=== PATIENT | male | born 1930 | race Caucasian/White ===

== ENCOUNTER 2018-01-07 16:28 | Emergency (ER) | payer MEDICARE, BC, OTHER ==
[~2018-01-07] VITALS: Ht 172.7 cm; Wt 73.5 kg
[2018-01-07] MEDS ORDERED: normal saline 1000ml 1,000 ML IV SCH (16:50)
[2018-01-07] MEDS ORDERED: verapamil 2.5 mg/ml inj IV ONE (16:50)
[2018-01-07 17:00] LABS: BASOPHILS % (AUTO) 0.4 % (0-1); EOSINOPHILS # (AUTO) 0.2 X10'3 (0-0.9); EOSINOPHILS % (AUTO) 2.1 % (0-6); HEMATOCRIT 37.9 % (42.0-52.0); LYMPHOCYTES # (AUTO) 2.5 X10'3 (1.1-4.8); LYMPHOCYTES % (AUTO) 26.5 % (21-51); MEAN CORPUSCULAR HEMOGLOBIN 31.8 PG (27.0-31.0); MEAN CORPUSCULAR HGB CONC 34.3 % (33.0-36.5); MEAN CORPUSCULAR VOLUME 92.7 FL (78-98); MEAN PLATELET VOLUME 7.8 FL (7.4-10.4); MONOCYTES # (AUTO) 0.8 X10'3 (0-0.9); MONOCYTES % (AUTO) 7.9 % (2-12); NEUTROPHILS # (AUTO) 6.1 X10'3 (1.8-7.7); NEUTROPHILS % (AUTO) 63.1 % (42-75); PLATELET COUNT 237 X10'3 (140-440); RED BLOOD COUNT 4.09 X10'6 (4.70-6.10); RED CELL DISTRIBUTION WIDTH 13.7 % (11.5-14.5); WHITE BLOOD COUNT 9.6 X10'3 (4.5-11.0)
[2018-01-07 17:09] LABS: INR 1.1 INR; PARTIAL THROMBOPLASTIN TIME 27 SECONDS (22-32); PROTHROMBIN TIME 11.2 SECONDS (9.0-12.0)
[2018-01-07 17:16] LABS: ALANINE AMINOTRANSFERASE 32 U/L (12-78); ALBUMIN 4.1 G/DL (3.4-5.0); ALBUMIN/GLOBULIN RATIO 1.2 (1.1-1.5); ALKALINE PHOSPHATASE 98 IU/L (46-116); ANION GAP 11 (8-16); ASPARTATE AMINO TRANSFERASE 20 U/L (10-37); BILIRUBIN,TOTAL 0.9 MG/DL (0.1-1.0); BLOOD UREA NITROGEN 36 MG/DL (7-18); BUN/CREATININE RATIO 24.5 (5.4-32.0); CALCIUM 9.9 MG/DL (8.5-10.1); CHLORIDE 109 MMOL/L (99-107); CREATININE 1.47 MG/DL (0.60-1.10); GLUCOSE 156 MG/DL (70-104); POTASSIUM 4.3 MMOL/L (3.5-5.1); SODIUM 147 MMOL/L (135-145); TOTAL CARBON DIOXIDE 27.5 MMOL/L (24-32); TOTAL PROTEIN 7.5 G/DL (6.4-8.2); eGFR 45 ML/MIN
[2018-01-07] MEDS ORDERED: flecainide 50mg tablet PO ONE (17:40)
[2018-01-07 17:47] VITALS: BP 101/55
== END 2018-01-07 17:40 | disposition home or self-care (01) ==
LOC: ER 16:28
DX: I48.0 Paroxysmal atrial fibrillation (principal); I10 Essential (primary) hypertension; E78.00 Pure hypercholesterolemia, unspecified; E11.9 Type 2 diabetes mellitus without complications
CPT/HCPCS: 36415; 71045; 80053; 84484; 85025; 85610; 85730; 93005; 96361; 96374; 99285; J7030

== ENCOUNTER 2018-02-24 14:00 | Inpatient (IN) | payer MEDICARE, BC, OTHER ==
[~2018-02-24] VITALS: Ht 170.2 cm; Wt 75.2 kg
[2018-02-24 14:40] LABS: BASOPHILS % (AUTO) 0.3 % (0-1); EOSINOPHILS # (AUTO) 0.3 X10'3 (0-0.9); EOSINOPHILS % (AUTO) 3.2 % (0-6); HEMATOCRIT 40.2 % (42.0-52.0); HEMOGLOBIN 13.7 g/dl (14.0-17.9); LYMPHOCYTES % (AUTO) 23.9 % (21-51); MEAN CORPUSCULAR HEMOGLOBIN 32.2 PG (27.0-31.0); MEAN CORPUSCULAR HGB CONC 34.1 % (33.0-36.5); MEAN CORPUSCULAR VOLUME 94.6 FL (78-98); MEAN PLATELET VOLUME 8.2 FL (7.4-10.4); MONOCYTES # (AUTO) 0.7 X10'3 (0-0.9); MONOCYTES % (AUTO) 8.1 % (2-12); NEUTROPHILS # (AUTO) 5.5 X10'3 (1.8-7.7); NEUTROPHILS % (AUTO) 64.5 % (42-75); PLATELET COUNT 208 X10'3 (140-440); RED BLOOD COUNT 4.25 X10'6 (4.70-6.10); RED CELL DISTRIBUTION WIDTH 13.3 % (11.5-14.5); WHITE BLOOD COUNT 8.5 X10'3 (4.5-11.0)
[2018-02-24 14:52] LABS: INR 1.2 INR; PARTIAL THROMBOPLASTIN TIME 29 SECONDS (22-32); PROTHROMBIN TIME 11.9 SECONDS (9.0-12.0)
[2018-02-24 14:55] LABS: ALANINE AMINOTRANSFERASE 32 U/L (12-78); ALBUMIN 4.1 G/DL (3.4-5.0); ALBUMIN/GLOBULIN RATIO 1.2 (1.1-1.5); ALKALINE PHOSPHATASE 93 IU/L (46-116); ANION GAP 10 (8-16); ASPARTATE AMINO TRANSFERASE 18 U/L (10-37); BILIRUBIN,TOTAL 1.2 MG/DL (0.1-1.0); BLOOD UREA NITROGEN 35 MG/DL (7-18); BUN/CREATININE RATIO 21.1 (5.4-32.0); CALCIUM 9.9 MG/DL (8.5-10.1); CHLORIDE 105 MMOL/L (99-107); CREATININE 1.66 MG/DL (0.60-1.10); GLUCOSE 119 MG/DL (70-104); POTASSIUM 4.2 MMOL/L (3.5-5.1); SODIUM 140 MMOL/L (135-145); TOTAL CARBON DIOXIDE 24.9 MMOL/L (24-32); TOTAL PROTEIN 7.5 G/DL (6.4-8.2); eGFR 39 ML/MIN
[2018-02-24 15:00] LABS: TROPONIN I < 0.04 NG/ML (0.0-0.05)
[2018-02-24] MEDS ORDERED: HYDROcodone/acetaminophen 5mg/325mg tablet PO PRN (16:00)
[2018-02-24] MEDS ORDERED: morphine 4 MG/ML inj SYRINge IV PRN ×2 (16:00)
[2018-02-24] MEDS ORDERED: ondansetron/PF 4mg/2ml inj IV PRN (16:00)
[2018-02-24] MEDS ORDERED: acetaminophen 325mg tablet PO PRN (16:00)
[2018-02-24] MEDS ORDERED: mag hydrox/Alum hydrox/simeth 30ml oral suspension PO PRN (16:00)
[2018-02-24] MEDS ORDERED: HYDROcodone/acetaminophen 10/325mg tab PO PRN (16:00)
[2018-02-24] MEDS ORDERED: magnesium hydroxide 30ml (MOM) UD suspension PO PRN (16:00)
[2018-02-24] MEDS: normal saline 1000ml 1,000 ML IV SCH (16:22)
[2018-02-24 16:39] LABS: CLARITY,URINE CLOUDY (Clear); COLOR,URINE YELLOW (Yellow); GLUCOSE, URINE NEGATIVE (Neg); KETONES,URINE TRACE mg/dl (Neg); LEUKOCYTE ESTERASE ,URINE NEGATIVE (Neg); NITRITES, URINE NEGATIVE (Neg); OCCULT BLOOD,URINE LARGE (Neg); PH,URINE 5.5 (4.8-8.0); PROTEIN,URINE TRACE mg/dl (Neg); UROBILINOGEN,URINE 0.2 E.U/dL (0.2-1.0)
[2018-02-24 16:59] LABS: UA COLLECTION TYPE CLN CATCH MIDSTREAM
[2018-02-24 17:01] LABS: BACTERIA,URINE NONE SEEN /HPF (Neg); MUCUS STRANDS MANY /LPF (Neg); RBC,URINE 50-100 /HPF (0-2); SQUAMOUS EPITHELIAL CELL,UR FEW /LPF (FEW); TRANSITIONAL EPI CELLS,URINE FEW /HPF; WBC,URINE 0-4 /HPF (0-4)
[2018-02-24 17:02] LABS: HYALINE CASTS >30 /LPF (NEGATIVE)
[2018-02-24] MEDS ORDERED: LOSA25TA96 PO (17:10)
[2018-02-24] MEDS ORDERED: METO-467 PO (17:11)
[2018-02-24] MEDS ORDERED: SIMV20TA5 PO (17:12)
[2018-02-24] MEDS ORDERED: METF500T PO (17:13)
[2018-02-24 19:00] VITALS: BP 169/85
[2018-02-24 23:00] VITALS: BP 154/66
[2018-02-25] MEDS: normal saline 1000ml 1,000 ML IV SCH ×2 (01:56→11:56)
[2018-02-25 03:00] VITALS: BP 157/66
[2018-02-25 05:37] LABS: BASOPHILS % (AUTO) 0.5 % (0-1); EOSINOPHILS # (AUTO) 0.4 X10'3 (0-0.9); EOSINOPHILS % (AUTO) 5.8 % (0-6); HEMATOCRIT 37.4 % (42.0-52.0); HEMOGLOBIN 12.7 g/dl (14.0-17.9); LYMPHOCYTES # (AUTO) 2.2 X10'3 (1.1-4.8); LYMPHOCYTES % (AUTO) 34.6 % (21-51); MEAN CORPUSCULAR HEMOGLOBIN 32.3 PG (27.0-31.0); MEAN CORPUSCULAR HGB CONC 34.1 % (33.0-36.5); MEAN CORPUSCULAR VOLUME 94.7 FL (78-98); MEAN PLATELET VOLUME 8.2 FL (7.4-10.4); MONOCYTES # (AUTO) 0.6 X10'3 (0-0.9); MONOCYTES % (AUTO) 9.7 % (2-12); NEUTROPHILS # (AUTO) 3.2 X10'3 (1.8-7.7); NEUTROPHILS % (AUTO) 49.4 % (42-75); PLATELET COUNT 181 X10'3 (140-440); RED BLOOD COUNT 3.95 X10'6 (4.70-6.10); WHITE BLOOD COUNT 6.4 X10'3 (4.5-11.0)
[2018-02-25 06:07] LABS: ALBUMIN 3.5 G/DL (3.4-5.0); ANION GAP 9 (8-16); BLOOD UREA NITROGEN 29 MG/DL (7-18); BUN/CREATININE RATIO 26.6 (5.4-32.0); CALCIUM 9.1 MG/DL (8.5-10.1); CHLORIDE 105 MMOL/L (99-107); CHOL/HDL RATIO 3.4 (0.00-4.99); CHOLESTEROL 147 MG/DL (0-200); CREATININE 1.09 MG/DL (0.60-1.10); GLUCOSE 90 MG/DL (70-104); HDL CHOLESTEROL 43 MG/DL (35-60); LDL CHOLESTEROL 87 MG/DL (50-100); POTASSIUM 3.7 MMOL/L (3.5-5.1); SODIUM 140 MMOL/L (135-145); TOTAL CARBON DIOXIDE 26.4 MMOL/L (24-32); TRIGLYCERIDES 118 MG/DL (20-135); eGFR 64 ML/MIN
[2018-02-25 07:09] VITALS: BP 166/86
[2018-02-25 08:00] VITALS: BP_SYST 166; BP_SYST 175; BP_DIAS 72; BP_DIAS 73; BP_DIAS 80
[2018-02-25] MEDS ORDERED: enoxaparin 40mg/0.4ml syringe SUBCUT SCH (08:00)
[2018-02-25 11:00] VITALS: BP 186/81
== END 2018-02-25 12:40 | disposition home or self-care (01) | DRG 683 ==
LOC: ER 14:02 → ED HOLD 15:56 → PCU 3S 17:35 → CMPBEDREQ 19:32
PROVIDERS: ADMIT Internal Medicine; ATTEND Internal Medicine
DX: N17.9 Acute kidney failure, unspecified (principal); G45.9 Transient cerebral ischemic attack, unspecified; E11.9 Type 2 diabetes mellitus without complications; E78.00 Pure hypercholesterolemia, unspecified; E78.5 Hyperlipidemia, unspecified; I10 Essential (primary) hypertension; I48.0 Paroxysmal atrial fibrillation; I49.5 Sick sinus syndrome; I65.23 Occlusion and stenosis of bilateral carotid arteries; Z79.01 Long term (current) use of anticoagulants; Z79.84 Long term (current) use of oral hypoglycemic drugs; Z79.899 Other long term (current) drug therapy; Z91.018 Allergy to other foods; Z72.89 Other problems related to lifestyle; Z83.3 Family history of diabetes mellitus
CPT/HCPCS: 36415; 70450; 71045; 80048; 80053; 80061; 81001; 82948; 84443; 84484; 85025; 85610; 85730; 87070; 93005; 93880; 97116; 97161; 99285; J7030

== ENCOUNTER 2018-03-03 14:08 | Day surgery (SDC) | payer MEDICARE, BC, OTHER ==
[2018-03-03] VITALS (7 sets, daily range): BP systolic 110–160; BP diastolic 62–108
[~2018-03-03] VITALS: Ht 170.2 cm; Wt 73.0 kg
[~2018-03-03 14:08] MED LIST: LOSA25TA96 PO; METF500T PO; SIMV20TA5 PO
[2018-03-03] MEDS ORDERED: normal saline 1000ml 1,000 ML IV SCH (14:40)
[2018-03-03] MEDS ORDERED: diphenhydrAMINE 25mg capsule PO PRN (14:40)
[2018-03-03] MEDS ORDERED: LORazepam 0.5 MG tablet PO PRN (14:40)
[2018-03-03] MEDS ORDERED: APIX5TAB5 PO (15:10)
[2018-03-03] MEDS ORDERED: ceFAZolin 1GM/D5W- ADD-VANTAGE 50 ML IV SCH (16:00)
[2018-03-03] MEDS ORDERED: ceFAZolin 1000mg inj ONE (16:38)
[2018-03-03] MEDS ORDERED: midazolam 2 mg/2 ml injection ONE (16:38)
[2018-03-03] MEDS ORDERED: fentaNYL/PF 50MCG/1 ML 2ML syringe ONE (16:38)
[2018-03-03] MEDS ORDERED: lidocaine 1%/epinephrine 1:100,000 injection 50ml vial ONE (16:39)
[2018-03-03] MEDS ORDERED: ceFAZolin 1GM/D5W- ADD-VANTAGE 50 ML IV ONE (16:39)
[2018-03-03] MEDS ORDERED: HYDROcodone/acetaminophen 5mg/325mg tablet PO PRN (19:10)
[2018-03-03] MEDS ORDERED: HYDROcodone/acetaminophen 10/325mg tab PO PRN (19:10)
== END 2018-03-03 20:10 | disposition home or self-care (01) ==
LOC: SSTAY O 14:08
PROVIDERS: ATTEND Internal Medicine Interventional Cardiology
DX: I49.5 Sick sinus syndrome (principal); I10 Essential (primary) hypertension; I48.0 Paroxysmal atrial fibrillation; I34.0 Nonrheumatic mitral (valve) insufficiency; E11.9 Type 2 diabetes mellitus without complications; E78.5 Hyperlipidemia, unspecified; N40.0 Benign prostatic hyperplasia without lower urinary tract symptoms; I65.23 Occlusion and stenosis of bilateral carotid arteries; Z72.89 Other problems related to lifestyle; Z85.828 Personal history of other malignant neoplasm of skin; Z91.018 Allergy to other foods; Z79.84 Long term (current) use of oral hypoglycemic drugs; Z79.01 Long term (current) use of anticoagulants; Z87.891 Personal history of nicotine dependence; Z86.73 Personal history of transient ischemic attack (TIA), and cerebral infarction without residual deficits; Z98.890 Other specified postprocedural states; Z79.899 Other long term (current) drug therapy
CPT/HCPCS: 33208; 82948; 93005; 99152; 99153; A4565; C1785; C1898; J0690; J2250; J3010; J3490; J7030; A4620

== ENCOUNTER 2018-05-10 18:58 | Emergency (ER) | payer MEDICARE, BC, OTHER ==
[~2018-05-10] VITALS: Ht 172.7 cm; Wt 71.4 kg
[~2018-05-10 18:58] MED LIST changes: +APIX5TAB5 PO
[2018-05-10] MEDS ORDERED: ketorolac tromethamine 15mg/ml inj. IV ONE (19:25)
[2018-05-10] MEDS ORDERED: ondansetron/PF 4mg/2ml inj IV ONE (19:25)
[2018-05-10] MEDS ORDERED: morphine 4 MG/ML inj SYRINge IV PRN (19:25)
[2018-05-10] MEDS ORDERED: normal saline 1000ML IV soln IVB ONE (19:25)
[2018-05-10 19:38] LABS: COLOR,URINE YELLOW (Yellow); GLUCOSE, URINE NEGATIVE (Neg); KETONES,URINE NEGATIVE (Neg); LEUKOCYTE ESTERASE ,URINE NEGATIVE (Neg); NITRITES, URINE NEGATIVE (Neg); OCCULT BLOOD,URINE LARGE (Neg); PH,URINE 5.5 (4.8-8.0); PROTEIN,URINE 30 mg/dl (Neg); UROBILINOGEN,URINE 0.2 E.U/dL (0.2-1.0)
[2018-05-10 19:49] LABS: UA COLLECTION TYPE CLN CATCH MIDSTREAM
[2018-05-10 19:50] LABS: CLARITY,URINE CLOUDY (Clear)
[2018-05-10 19:51] LABS: WBC,URINE 0-4 /HPF (0-4)
[2018-05-10 19:52] LABS: BACTERIA,URINE FEW /HPF (Neg); MUCUS STRANDS FEW /LPF (Neg); RBC,URINE TNTC /HPF (0-2); SQUAMOUS EPITHELIAL CELL,UR NONE SEEN /LPF (FEW)
[2018-05-10 19:53] LABS: HYALINE CASTS 0-3 /LPF (NEGATIVE)
[2018-05-10 20:27] LABS: BASOPHILS % (AUTO) 0.2 % (0-1); EOSINOPHILS # (AUTO) 0.2 X10'3 (0-0.9); EOSINOPHILS % (AUTO) 1.8 % (0-6); LYMPHOCYTES # (AUTO) 0.9 X10'3 (1.1-4.8); LYMPHOCYTES % (AUTO) 10.6 % (21-51); MEAN CORPUSCULAR HEMOGLOBIN 31.4 PG (27.0-31.0); MEAN CORPUSCULAR HGB CONC 33.3 % (33.0-36.5); MEAN CORPUSCULAR VOLUME 94.4 FL (78-98); MEAN PLATELET VOLUME 7.8 FL (7.4-10.4); MONOCYTES # (AUTO) 0.7 X10'3 (0-0.9); MONOCYTES % (AUTO) 7.7 % (2-12); NEUTROPHILS % (AUTO) 79.7 % (42-75); PLATELET COUNT 225 X10'3 (140-440); RED BLOOD COUNT 3.81 X10'6 (4.70-6.10); RED CELL DISTRIBUTION WIDTH 13.2 % (11.5-14.5); WHITE BLOOD COUNT 8.8 X10'3 (4.5-11.0)
[2018-05-10 20:43] LABS: ALANINE AMINOTRANSFERASE 30 U/L (12-78); ALBUMIN 3.5 G/DL (3.4-5.0); ALBUMIN/GLOBULIN RATIO 1.1 (1.1-1.5); ALKALINE PHOSPHATASE 108 IU/L (46-116); ANION GAP 11 (8-16); ASPARTATE AMINO TRANSFERASE 18 U/L (10-37); BILIRUBIN,TOTAL 0.9 MG/DL (0.1-1.0); BLOOD UREA NITROGEN 33 MG/DL (7-18); BUN/CREATININE RATIO 17.2 (5.4-32.0); CALCIUM 9.2 MG/DL (8.5-10.1); CHLORIDE 102 MMOL/L (99-107); CREATININE 1.92 MG/DL (0.60-1.10); GLUCOSE 175 MG/DL (70-104); LIPASE 56 U/L (73-393); SODIUM 139 MMOL/L (135-145); TOTAL CARBON DIOXIDE 25.9 MMOL/L (24-32); TOTAL PROTEIN 6.7 G/DL (6.4-8.2); eGFR 33 ML/MIN
[2018-05-10] MEDS ORDERED: FLO0.4C PO (21:53)
[2018-05-10] MEDS ORDERED: HYDR-568 PO (21:53)
[2018-05-10 22:04] VITALS: BP 129/60
[2018-05-11] MEDS ORDERED: HYDR-568 PO (16:47)
[2018-05-11] MEDS ORDERED: FLO0.4C PO (16:51)
== END 2018-05-10 22:05 | disposition home or self-care (01) ==
LOC: ER 18:58
DX: N20.1 Calculus of ureter (principal); E11.9 Type 2 diabetes mellitus without complications; I10 Essential (primary) hypertension; E78.00 Pure hypercholesterolemia, unspecified; I48.91 Unspecified atrial fibrillation; Z91.013 Allergy to seafood; Z79.84 Long term (current) use of oral hypoglycemic drugs; Z79.899 Other long term (current) drug therapy
CPT/HCPCS: 36415; 74176; 80053; 81001; 83690; 85025; 96374; 96375; 99285; J1885; J2270; J2405

== ENCOUNTER 2018-10-17 17:42 | Emergency (ER) | payer MEDICARE, BC, OTHER ==
[~2018-10-17] VITALS: Ht 172.7 cm; Wt 71.7 kg
[~2018-10-17 17:42] MED LIST changes: +FLO0.4C PO; +HYDR-4384 PO
[2018-10-17] MEDS ORDERED: aspirin 81mg tab.chew PO ONE (17:55)
[2018-10-17 18:06] LABS: BASOPHILS # (AUTO) 0.1 X10'3 (0-0.2); BASOPHILS % (AUTO) 1.2 % (0-1); EOSINOPHILS # (AUTO) 0.3 X10'3 (0-0.9); EOSINOPHILS % (AUTO) 3.1 % (0-6); HEMATOCRIT 40.9 % (42.0-52.0); HEMOGLOBIN 13.7 g/dl (14.0-17.9); LYMPHOCYTES # (AUTO) 2.1 X10'3 (1.1-4.8); LYMPHOCYTES % (AUTO) 23.1 % (21-51); MEAN CORPUSCULAR HEMOGLOBIN 30.9 PG (27.0-31.0); MEAN CORPUSCULAR HGB CONC 33.6 g/dL (33.0-36.5); MEAN PLATELET VOLUME 8.1 FL (7.4-10.4); MONOCYTES # (AUTO) 0.7 X10'3 (0-0.9); MONOCYTES % (AUTO) 7.5 % (2-12); NEUTROPHILS # (AUTO) 5.8 X10'3 (1.8-7.7); NEUTROPHILS % (AUTO) 65.1 % (42-75); PLATELET COUNT 236 X10'3 (140-440); RED BLOOD COUNT 4.45 X10'6 (4.70-6.10); RED CELL DISTRIBUTION WIDTH 13.1 % (11.5-14.5); WHITE BLOOD COUNT 8.9 X10'3 (4.5-11.0)
[2018-10-17] MEDS ORDERED: diltiazem 5mg/ml 5ml inj. IV ONE (18:20)
[2018-10-17 18:22] LABS: ALANINE AMINOTRANSFERASE 40 U/L (12-78); ALBUMIN 3.9 G/DL (3.4-5.0); ALBUMIN/GLOBULIN RATIO 1.2 (1.1-1.5); ANION GAP 10 (8-16); ASPARTATE AMINO TRANSFERASE 22 U/L (10-37); BILIRUBIN,TOTAL 0.7 MG/DL (0.1-1.0); BLOOD UREA NITROGEN 29 MG/DL (7-18); BUN/CREATININE RATIO 21.3 (5.4-32.0); CALCIUM 9.9 MG/DL (8.5-10.1); CHLORIDE 105 MMOL/L (99-107); CREATININE 1.36 MG/DL (0.60-1.10); GLUCOSE 142 MG/DL (70-104); SODIUM 141 MMOL/L (135-145); TOTAL CARBON DIOXIDE 25.9 MMOL/L (24-32); TOTAL PROTEIN 7.2 G/DL (6.4-8.2); eGFR 50 ML/MIN
[2018-10-17 18:23] LABS: ALKALINE PHOSPHATASE 99 IU/L (46-116)
[2018-10-17 18:29] LABS: MAGNESIUM 1.7 MG/DL (1.5-2.4)
--- NOTE | 2018-10-17 18:49 | NUR ---
pt heart rate moving between 80's and 110's SBP 137
--- NOTE | 2018-10-17 19:08 | NUR ---
1908: Spoke with [facility] [facility] technical support. They state they will fax the report within 30 minutes.
[2018-10-17] MEDS ORDERED: METO25TA6 PO (19:35)
[2018-10-17 20:03] VITALS: BP 129/80
== END 2018-10-17 20:06 | disposition home or self-care (01) ==
LOC: ER 17:42
DX: I48.91 Unspecified atrial fibrillation (principal); E78.00 Pure hypercholesterolemia, unspecified; I10 Essential (primary) hypertension; E11.9 Type 2 diabetes mellitus without complications; Z95.0 Presence of cardiac pacemaker; Z91.018 Allergy to other foods; Z79.84 Long term (current) use of oral hypoglycemic drugs; Z79.899 Other long term (current) drug therapy
CPT/HCPCS: 36415; 71045; 80053; 83735; 83880; 84484; 85025; 93005; 96374; 99284; J3490

== ENCOUNTER 2018-11-29 20:27 | Emergency (ER) | payer MEDICARE, BC, OTHER ==
[~2018-11-29] VITALS: Ht 172.7 cm; Wt 74.7 kg
[~2018-11-29 20:27] MED LIST changes: +METO25TA6 PO
[2018-11-29 21:06] LABS: CLARITY,URINE SLIGHTLY CLOUDY (Clear); COLOR,URINE YELLOW (Yellow); GLUCOSE, URINE NEGATIVE (Neg); KETONES,URINE TRACE mg/dl (Neg); LEUKOCYTE ESTERASE ,URINE NEGATIVE (Neg); NITRITES, URINE NEGATIVE (Neg); OCCULT BLOOD,URINE LARGE (Neg); PH,URINE 6.5 (4.8-8.0); PROTEIN,URINE 30 mg/dl (Neg); UA COLLECTION TYPE CLN CATCH MIDSTREAM; UROBILINOGEN,URINE 0.2 E.U/dL (0.2-1.0)
[2018-11-29 21:13] LABS: RBC,URINE TNTC /HPF (0-2); SQUAMOUS EPITHELIAL CELL,UR FEW /LPF (FEW)
[2018-11-29 21:14] LABS: BACTERIA,URINE 1+ /HPF (Neg)
[2018-11-29 21:24] LABS: BASOPHILS % (AUTO) 0.5 % (0-1); EOSINOPHILS # (AUTO) 0.2 X10'3 (0-0.9); EOSINOPHILS % (AUTO) 1.7 % (0-6); HEMATOCRIT 39.5 % (42.0-52.0); HEMOGLOBIN 13.3 g/dl (14.0-17.9); LYMPHOCYTES # (AUTO) 2.4 X10'3 (1.1-4.8); LYMPHOCYTES % (AUTO) 24.7 % (21-51); MEAN CORPUSCULAR HGB CONC 33.5 g/dL (33.0-36.5); MEAN CORPUSCULAR VOLUME 92.5 FL (78-98); MEAN PLATELET VOLUME 8.1 FL (7.4-10.4); MONOCYTES # (AUTO) 0.7 X10'3 (0-0.9); MONOCYTES % (AUTO) 7.1 % (2-12); NEUTROPHILS # (AUTO) 6.4 X10'3 (1.8-7.7); PLATELET COUNT 199 X10'3 (140-440); RED BLOOD COUNT 4.28 X10'6 (4.70-6.10); RED CELL DISTRIBUTION WIDTH 13.5 % (11.5-14.5); WHITE BLOOD COUNT 9.7 X10'3 (4.5-11.0)
[2018-11-29] MEDS ORDERED: diphenhydrAMINE 50 mg/ml inj IV ONE (21:30)
[2018-11-29] MEDS ORDERED: morphine 10mg/ml inj. IV ONE (21:30)
[2018-11-29] MEDS ORDERED: proCHLORperazine 10 MG/2 ml inj IV ONE (21:30)
[2018-11-29 21:32] LABS: ALANINE AMINOTRANSFERASE 37 U/L (12-78); ALBUMIN 4.2 G/DL (3.4-5.0); ALBUMIN/GLOBULIN RATIO 1.3 (1.1-1.5); ALKALINE PHOSPHATASE 116 IU/L (46-116); ANION GAP 13 (8-16); ASPARTATE AMINO TRANSFERASE 19 U/L (10-37); BILIRUBIN,TOTAL 0.8 MG/DL (0.1-1.0); BLOOD UREA NITROGEN 33 MG/DL (7-18); BUN/CREATININE RATIO 20.8 (5.4-32.0); CALCIUM 9.8 MG/DL (8.5-10.1); CHLORIDE 105 MMOL/L (99-107); CREATININE 1.59 MG/DL (0.60-1.10); GLUCOSE 179 MG/DL (70-104); POTASSIUM 4.2 MMOL/L (3.5-5.1); SODIUM 141 MMOL/L (135-145); TOTAL CARBON DIOXIDE 23.5 MMOL/L (24-32); TOTAL PROTEIN 7.4 G/DL (6.4-8.2); eGFR 41 ML/MIN
[2018-11-29 21:35] LABS: INR 1.1 INR
--- NOTE | 2018-11-30 00:57 | NUR ---
Mychal schreiber in [facility] - 11/30/18 at 0059 by JAMMIE pt and family updated of ct test results.
--- NOTE | 2018-11-30 00:59 | NUR ---
pt and family updated about the wait, pt awaiting ct results.
--- NOTE | 2018-11-30 01:10 | NUR ---
pt ambulated to restroom and back in room 17 on a steady gait.
[2018-11-30 01:17] VITALS: BP 163/93
[2018-11-30] MEDS ORDERED: HYDR-4384 PO (01:34)
[2018-11-30] MEDS ORDERED: FLO0.4C PO (01:34)
[2018-11-30] MEDS ORDERED: ONDA4TAB6 PO (01:34)
== END 2018-11-30 01:43 | disposition home or self-care (01) ==
LOC: ER 20:27
DX: N20.2 Calculus of kidney with calculus of ureter (principal); I48.91 Unspecified atrial fibrillation; E78.00 Pure hypercholesterolemia, unspecified; I10 Essential (primary) hypertension; E11.9 Type 2 diabetes mellitus without complications; Z95.1 Presence of aortocoronary bypass graft; Z91.018 Allergy to other foods; Z79.84 Long term (current) use of oral hypoglycemic drugs; Z79.899 Other long term (current) drug therapy
CPT/HCPCS: 36415; 74176; 80053; 81001; 85025; 85610; 87088; 96374; 96375; 99284; J0780; J1200; J2270

== ENCOUNTER 2018-12-03 12:50 | Emergency (ER) | payer MEDICARE, BC, OTHER ==
[~2018-12-03] VITALS: Ht 175.3 cm; Wt 80.0 kg
[~2018-12-03 12:50] MED LIST changes: +ONDA4TAB6 PO
[2018-12-03] MEDS ORDERED: normal saline 1000ML IV soln IVB ONE (13:20)
[2018-12-03] MEDS ORDERED: ondansetron/PF 4mg/2ml inj IV ONE (13:20)
[2018-12-03] MEDS: morphine 4 MG/ML inj SYRINge IV PRN ×2 (13:27→14:23)
[2018-12-03 13:31] LABS: BASOPHILS % (AUTO) 0.2 % (0-1); EOSINOPHILS # (AUTO) 0.1 X10'3 (0-0.9); EOSINOPHILS % (AUTO) 0.5 % (0-6); HEMATOCRIT 40.5 % (42.0-52.0); HEMOGLOBIN 13.5 g/dl (14.0-17.9); LYMPHOCYTES # (AUTO) 1.2 X10'3 (1.1-4.8); LYMPHOCYTES % (AUTO) 11.4 % (21-51); MEAN CORPUSCULAR HEMOGLOBIN 31.1 PG (27.0-31.0); MEAN CORPUSCULAR HGB CONC 33.4 g/dL (33.0-36.5); MEAN CORPUSCULAR VOLUME 93.1 FL (78-98); MEAN PLATELET VOLUME 8.3 FL (7.4-10.4); MONOCYTES # (AUTO) 0.6 X10'3 (0-0.9); MONOCYTES % (AUTO) 5.3 % (2-12); NEUTROPHILS # (AUTO) 8.9 X10'3 (1.8-7.7); NEUTROPHILS % (AUTO) 82.6 % (42-75); PLATELET COUNT 201 X10'3 (140-440); RED BLOOD COUNT 4.35 X10'6 (4.70-6.10); RED CELL DISTRIBUTION WIDTH 13.7 % (11.5-14.5); WHITE BLOOD COUNT 10.8 X10'3 (4.5-11.0)
[2018-12-03 13:44] LABS: INR 1.1 INR
[2018-12-03 13:57] LABS: ALANINE AMINOTRANSFERASE 34 U/L (12-78); ALBUMIN/GLOBULIN RATIO 1.1 (1.1-1.5); ALKALINE PHOSPHATASE 99 IU/L (46-116); ANION GAP 9 (8-16); ASPARTATE AMINO TRANSFERASE 15 U/L (10-37); BILIRUBIN,TOTAL 0.9 MG/DL (0.1-1.0); BLOOD UREA NITROGEN 39 MG/DL (7-18); BUN/CREATININE RATIO 20.9 (5.4-32.0); CALCIUM 9.7 MG/DL (8.5-10.1); CHLORIDE 102 MMOL/L (99-107); CREATININE 1.87 MG/DL (0.60-1.10); GLUCOSE 180 MG/DL (70-104); POTASSIUM 4.4 MMOL/L (3.5-5.1); SODIUM 137 MMOL/L (135-145); TOTAL PROTEIN 7.5 G/DL (6.4-8.2); eGFR 34 ML/MIN
[2018-12-03 14:13] LABS: CLARITY,URINE CLEAR (Clear); COLOR,URINE YELLOW (Yellow); GLUCOSE, URINE 250 mg/dl (Neg); KETONES,URINE NEGATIVE (Neg); LEUKOCYTE ESTERASE ,URINE NEGATIVE (Neg); NITRITES, URINE NEGATIVE (Neg); OCCULT BLOOD,URINE LARGE (Neg); PROTEIN,URINE NEGATIVE (Neg); UA COLLECTION TYPE URINAL; UROBILINOGEN,URINE 0.2 E.U/dL (0.2-1.0)
[2018-12-03] MEDS ORDERED: iohexol 300mg/ml 100ml inj. ONE (14:14)
[2018-12-03 14:18] LABS: BACTERIA,URINE NONE SEEN /HPF (Neg); MUCUS STRANDS NONE SEEN /LPF (Neg); RBC,URINE 20-50 /HPF (0-2); SQUAMOUS EPITHELIAL CELL,UR NONE SEEN /LPF (FEW); WBC,URINE 0-4 /HPF (0-4)
[2018-12-03 15:23] VITALS: BP 173/92
[2018-12-03] MEDS ORDERED: HYDR-4353 PO (15:46)
[2018-12-03] MEDS ORDERED: FLO0.4C PO (15:47)
== END 2018-12-03 16:10 | disposition home or self-care (01) ==
LOC: ER 12:51
DX: N20.2 Calculus of kidney with calculus of ureter (principal); Z87.442 Personal history of urinary calculi; I48.91 Unspecified atrial fibrillation; E78.00 Pure hypercholesterolemia, unspecified; I10 Essential (primary) hypertension; E11.9 Type 2 diabetes mellitus without complications; Z91.013 Allergy to seafood; Z79.84 Long term (current) use of oral hypoglycemic drugs; Z79.899 Other long term (current) drug therapy; Z95.0 Presence of cardiac pacemaker; Z87.891 Personal history of nicotine dependence
CPT/HCPCS: 36415; 74176; 80053; 81001; 85025; 85610; 96374; 96375; 96376; 99284; J2270; J2405; J7030; Q9967

== ENCOUNTER 2020-09-21 17:02 | Emergency (ER) | payer OTHER, MEDICARE, BC ==
[~2020-09-21] VITALS: Ht 175.3 cm; Wt 73.6 kg
[~2020-09-21 17:02] MED LIST changes: -HYDR-4384 PO; -LOSA25TA96 PO; +METO-395 PO; -METO25TA6 PO; +OXYC-145 PO; +SIMV-42 PO; -SIMV20TA5 PO
[2020-09-21 17:06] VITALS: BP 171/95
[2020-09-21] MEDS ORDERED: bacitracin 15gm ointment TP ONE (17:15)
== END 2020-09-21 17:29 | disposition home or self-care (01) ==
LOC: ER 17:02
DX: S51.811A Laceration without foreign body of right forearm, initial encounter (principal); I48.91 Unspecified atrial fibrillation; E78.00 Pure hypercholesterolemia, unspecified; I10 Essential (primary) hypertension; E11.9 Type 2 diabetes mellitus without complications; Z87.442 Personal history of urinary calculi; Z85.9 Personal history of malignant neoplasm, unspecified; Z95.0 Presence of cardiac pacemaker; Z98.890 Other specified postprocedural states; Z72.89 Other problems related to lifestyle; Z88.8 Allergy status to other drugs, medicaments and biological substances; Z79.899 Other long term (current) drug therapy; W01.0XXA Fall on same level from slipping, tripping and stumbling without subsequent striking against object, initial encounter; Y93.89 Activity, other specified; Y92.89 Other specified places as the place of occurrence of the external cause; Y99.8 Other external cause status
CPT/HCPCS: 99284

== ENCOUNTER 2021-03-14 09:30 | Outpatient (CLI) | payer OTHER, MEDICARE, BC ==
[2021-03-14 10:42] LABS: BASOPHILS % (AUTO) 0.6 % (0-1); EOSINOPHILS # (AUTO) 0.2 X10'3 (0-0.9); EOSINOPHILS % (AUTO) 3.6 % (0-6); HEMATOCRIT 41.1 % (42.0-52.0); HEMOGLOBIN 13.7 g/dl (14.0-17.9); LYMPHOCYTES # (AUTO) 1.5 X10'3 (1.1-4.8); LYMPHOCYTES % (AUTO) 21.8 % (21-51); MEAN CORPUSCULAR HEMOGLOBIN 31.5 PG (27.0-31.0); MEAN CORPUSCULAR HGB CONC 33.4 g/dL (33.0-36.5); MEAN CORPUSCULAR VOLUME 94.3 FL (78-98); MONOCYTES # (AUTO) 0.5 X10'3 (0-0.9); MONOCYTES % (AUTO) 7.7 % (2-12); NEUTROPHILS # (AUTO) 4.5 X10'3 (1.8-7.7); NEUTROPHILS % (AUTO) 66.3 % (42-75); PLATELET COUNT 230 X10'3 (140-440); RED BLOOD COUNT 4.36 X10'6 (4.70-6.10); RED CELL DISTRIBUTION WIDTH 13.1 % (11.5-14.5); WHITE BLOOD COUNT 6.8 X10'3 (4.5-11.0)
[2021-03-14 10:53] LABS: ALBUMIN 4.3 G/DL (3.4-5.0); ANION GAP 11 (8-16); BLOOD UREA NITROGEN 26 MG/DL (7-18); BUN/CREATININE RATIO 18.1 (5.4-32.0); CALCIUM 9.3 MG/DL (8.5-10.1); CHLORIDE 104 MMOL/L (99-107); CREATININE 1.44 MG/DL (0.60-1.10); GLUCOSE 96 MG/DL (70-104); SODIUM 141 MMOL/L (135-145); TOTAL CARBON DIOXIDE 26.4 MMOL/L (24-32); eGFR 46 ML/MIN
[2021-03-14 10:55] LABS: PARTIAL THROMBOPLASTIN TIME 31 SECONDS (22-32)
[2021-03-17] MEDS ORDERED: METO25TA6 PO (10:20)
[2021-03-17] MEDS ORDERED: SULF-14 PO (16:22)
[2021-03-20] MEDS ORDERED: APIX5TAB3 PO (09:36)
[2021-03-20] MEDS ORDERED: ATOR20TA66 PO (09:36)
[2021-03-20] MEDS ORDERED: ISOS30TA84 PO (09:36)
[2021-03-20] MEDS ORDERED: ASPI-1071 PO (09:36)
== END 2021-03-14 23:59 | disposition home or self-care (01) ==
LOC: SSTAY O 09:30 → EDSTATUS 03-19 15:30
PROVIDERS: ATTEND Internal Medicine Interventional Cardiology
DX: I10 Essential (primary) hypertension (principal); I48.0 Paroxysmal atrial fibrillation
CPT/HCPCS: 36415; 80048; 85025; 85610; 85730; 93458; 99152; 99153; A4620; A5120; C1769; C1894

== ENCOUNTER 2021-04-17 07:58 | Day surgery (SDC) | payer OTHER ==
[2021-04-12 11:54] LABS: CLARITY,URINE CLEAR (Clear); COLOR,URINE YELLOW (Yellow); GLUCOSE, URINE NEGATIVE (Neg); KETONES,URINE NEGATIVE (Neg); LEUKOCYTE ESTERASE ,URINE NEGATIVE (Neg); NITRITES, URINE NEGATIVE (Neg); OCCULT BLOOD,URINE TRACE-LYSED (Neg); PROTEIN,URINE NEGATIVE (Neg); UROBILINOGEN,URINE 0.2 E.U/dL (0.2-1.0)
[2021-04-12 11:56] LABS: BASOPHILS % (AUTO) 0.6 % (0-1); EOSINOPHILS # (AUTO) 0.3 X10'3 (0-0.9); LYMPHOCYTES # (AUTO) 1.8 X10'3 (1.1-4.8); LYMPHOCYTES % (AUTO) 25.9 % (21-51); MEAN CORPUSCULAR HEMOGLOBIN 31.4 PG (27.0-31.0); MEAN CORPUSCULAR HGB CONC 32.9 g/dL (33.0-36.5); MEAN CORPUSCULAR VOLUME 95.3 FL (78-98); MEAN PLATELET VOLUME 7.7 FL (7.4-10.4); MONOCYTES # (AUTO) 0.6 X10'3 (0-0.9); MONOCYTES % (AUTO) 8.5 % (2-12); NEUTROPHILS # (AUTO) 4.4 X10'3 (1.8-7.7); PRE OP HEMATOCRIT 41.5 % (42.0-52.0); PRE OP HEMOGLOBIN 13.7 g/dL (14.0-17.9); PRE OP PLATELET COUNT 221 X10'3 (140-440); RED BLOOD COUNT 4.35 X10'6 (4.70-6.10); RED CELL DISTRIBUTION WIDTH 13.3 % (11.5-14.5)
[2021-04-12 12:03] LABS: UA COLLECTION TYPE CLN CATCH MIDSTREAM
[2021-04-12 12:04] LABS: BACTERIA,URINE NONE SEEN /HPF (Neg); MUCUS STRANDS NONE SEEN /LPF (Neg); RBC,URINE 0-2 /HPF (0-2); SQUAMOUS EPITHELIAL CELL,UR FEW /LPF (FEW); WBC,URINE NONE SEEN /HPF (0-4)
[2021-04-12 12:05] LABS: ALBUMIN 4.2 G/DL (3.4-5.0); ALBUMIN/GLOBULIN RATIO 1.2 (1.1-1.5); ALKALINE PHOSPHATASE 129 IU/L (46-116); BLOOD UREA NITROGEN 29 MG/DL (7-18); BUN/CREATININE RATIO 25.2 (5.4-32.0); CALCIUM 9.4 MG/DL (8.5-10.1); CHLORIDE 109 MMOL/L (99-107); CREATININE 1.15 MG/DL (0.60-1.10); PRE OP ALT 46 U/L (30-65); PRE OP ANION GAP 8 (8-16); PRE OP AST 37 U/L (10-37); PRE OP GLUCOSE 108 MG/DL (70-104); PRE OP POTASSIUM 4.3 MMOL/L (3.4-5.1); PRE OP SODIUM 145 MMOL/L (135-145); TOTAL CARBON DIOXIDE 27.8 MMOL/L (24-32); TOTAL PROTEIN 7.8 G/DL (6.4-8.2); eGFR 60 ML/MIN
[~2021-04-17] VITALS: Ht 172.7 cm; Wt 71.0 kg
[2021-04-17] VITALS (14 sets, daily range): BP systolic 133–186; BP diastolic 67–97
[~2021-04-17 07:58] MED LIST changes: +APIX5TAB3 PO; -APIX5TAB5 PO; +ATOR20TA66 PO; +ISOS30TA84 PO; +MESSAGE TO NURSING PO ONE; -METF500T PO; -METO-395 PO; +METO25TA6 PO; -ONDA4TAB6 PO; -OXYC-145 PO; -SIMV-42 PO; +cefazolin/dext.iso 2gm/100ml IV ONE; +famotidine 20mg tablet PO ONE; +ringers solution, lacted 1,000 ML IV SCH
[2021-04-17] MEDS ORDERED: BUPIVAcaine/PF 2.5mg/ml (0.25%) 10ml vial ONE (09:34)
[2021-04-17] MEDS ORDERED: ISOS30TA84 PO (09:55)
[2021-04-17] MEDS ORDERED: APIX5TAB3 PO (09:55)
[2021-04-17] MEDS ORDERED: ATOR20TA PO (09:55)
[2021-04-17] MEDS ORDERED: sevoflurane 250ml liquid IH ONE (10:17)
[2021-04-17] MEDS ORDERED: fentaNYL/PF 50MCG/1 ML 2ML syringe ONE ×2 (10:25→10:56)
[2021-04-17] MEDS ORDERED: phenylephrine 10mg/ml inj. ONE (11:30)
[2021-04-17] MEDS ORDERED: ondansetron/PF 4mg/2ml inj ONE (11:30)
[2021-04-17] MEDS ORDERED: propofol inj 20 ML IV ONE (11:30)
[2021-04-17] MEDS ORDERED: LIDOcaine 2% (20mg/ml) 5ml vial ONE (11:30)
[2021-04-17] MEDS ORDERED: mupirocin 2% ointment 22GM ONE (11:34)
[2021-04-17] MEDS ORDERED: morphine 4 MG/ML inj SYRINge ONE (11:51)
--- NOTE | 2021-04-17 11:52 | NUR ---
Received from OR via RASHI , accompanied by Anesthesiologist SHAHLA and report given by Anesthesiolgist. PATIENT WITH ANTERIOR CHEST DRESSING THAT IS CDI. TWO AYAZ DRAINS PRESENT WITH BLOODY DRAINAGE PRESENT IN BULBS. HOLDING SUCTION. VSS. `10L MASK ON WITH 100% SATURATIONS. 20G PIV IN LEFT UE RUNNING LR AT 100. MASSIVELY CONFUSED. Addendum: 04/17/21 at 1207 by Chuckie Mariee RN, RN Amended: Links added.
[2021-04-17] MEDS ORDERED: ringers solution, lacted 1,000 ML IV SCH (12:10)
[2021-04-17] MEDS ORDERED: hydrALAZINE 20mg/ml inj. IV PRN (12:10)
[2021-04-17] MEDS ORDERED: hydrALAZINE 20mg/ml inj. IV ONE (12:10)
[2021-04-17] MEDS ORDERED: HYDROmorphone/PF 0.2 MG/ML SYRINGE IV PRN (12:10)
[2021-04-17] MEDS ORDERED: morphine 2 MG/ML inj. syringe IV PRN (12:10)
[2021-04-17] MEDS ORDERED: ondansetron/PF 4mg/2ml inj IV PRN (12:10)
[2021-04-17] MEDS ORDERED: acetaminophen 1,000mg/100ml IV 100 ML IV ONE (12:10)
--- NOTE | 2021-04-17 13:42 | NUR ---
ALL DC INSTRUCTIONS COVERED WITH PATIENT AND DAUGHTER. INSTRUCTED AND DEMONSTRATED DAUGHTER HOW TO EMPTY LAWS CATHETER AND AYAZ DRAINS. DISCUSSED MEASURING OUTPUT FOR MD. MEDICATIONS FOR HOME SENT TO PHARMACY OF CHOICE. DAUGHTER AWARE OF MEDS. OUT VIA WHEELCHAIR TO PERSONAL VEHICLE WHERE DAUGHTER DROVE PATIENT HOME. Addendum: 04/17/21 at 1419 by Chuckie Mariee RN, RN Amended: Links added.
== END 2021-04-17 13:42 | disposition home or self-care (01) ==
LOC: PAS 07:58
PROVIDERS: ATTEND Surgery
DX: C44.529 Squamous cell carcinoma of skin of other part of trunk (principal); I10 Essential (primary) hypertension; E78.5 Hyperlipidemia, unspecified; E11.9 Type 2 diabetes mellitus without complications; I48.91 Unspecified atrial fibrillation; I25.2 Old myocardial infarction; N40.0 Benign prostatic hyperplasia without lower urinary tract symptoms; I25.10 Atherosclerotic heart disease of native coronary artery without angina pectoris; Z85.828 Personal history of other malignant neoplasm of skin; Z87.442 Personal history of urinary calculi; Z72.89 Other problems related to lifestyle; Z79.82 Long term (current) use of aspirin; Z79.899 Other long term (current) drug therapy; Z87.891 Personal history of nicotine dependence; Z95.0 Presence of cardiac pacemaker; Z86.11 Personal history of tuberculosis; Z91.013 Allergy to seafood; Z20.822 Contact with and (suspected) exposure to COVID-19
CPT/HCPCS: 11606; 13101; 13102; 36415; 80053; 81001; 82948; 85025; 93005; J0131; J0360; J1170; J2001; J2270; J2370; J2405; J2704; J3010; J3490; J7120; U0003; U0005; Z7506; Z7508; Z7512; A4215; A4618; A6449; A7000

== ENCOUNTER 2021-05-06 12:06 | Emergency (ER) | payer OTHER, MEDICARE, BC ==
[~2021-05-06] VITALS: Ht 172.7 cm; Wt 68.0 kg
[~2021-05-06 12:06] MED LIST changes: +ATOR20TA PO; -ATOR20TA66 PO; -MESSAGE TO NURSING PO ONE; -cefazolin/dext.iso 2gm/100ml IV ONE; -famotidine 20mg tablet PO ONE; -ringers solution, lacted 1,000 ML IV SCH
[2021-05-06 12:54] LABS: BASOPHILS % (AUTO) 0.1 % (0-1); EOSINOPHILS % (AUTO) 0.1 % (0-6); HEMATOCRIT 31.2 % (42.0-52.0); HEMOGLOBIN 10.4 g/dl (14.0-17.9); LYMPHOCYTES # (AUTO) 0.6 X10'3 (1.1-4.8); LYMPHOCYTES % (AUTO) 4.9 % (21-51); MEAN CORPUSCULAR HEMOGLOBIN 31.6 PG (27.0-31.0); MEAN CORPUSCULAR HGB CONC 33.3 g/dL (33.0-36.5); MEAN CORPUSCULAR VOLUME 94.8 FL (78-98); MEAN PLATELET VOLUME 7.4 FL (7.4-10.4); MONOCYTES % (AUTO) 8.2 % (2-12); NEUTROPHILS # (AUTO) 10.7 X10'3 (1.8-7.7); NEUTROPHILS % (AUTO) 86.7 % (42-75); PLATELET COUNT 320 X10'3 (140-440); RED BLOOD COUNT 3.29 X10'6 (4.70-6.10); RED CELL DISTRIBUTION WIDTH 13.3 % (11.5-14.5); WHITE BLOOD COUNT 12.3 X10'3 (4.5-11.0)
[2021-05-06 13:08] LABS: ALANINE AMINOTRANSFERASE 75 U/L (12-78); ALBUMIN 2.8 G/DL (3.4-5.0); ALBUMIN/GLOBULIN RATIO 0.7 (1.1-1.5); ALKALINE PHOSPHATASE 174 IU/L (46-116); ANION GAP 11 (8-16); ASPARTATE AMINO TRANSFERASE 71 U/L (10-37); BILIRUBIN,TOTAL 0.9 MG/DL (0.1-1.0); BLOOD UREA NITROGEN 31 MG/DL (7-18); BUN/CREATININE RATIO 26.5 (5.4-32.0); CALCIUM 8.6 MG/DL (8.5-10.1); CHLORIDE 101 MMOL/L (99-107); CREATININE 1.17 MG/DL (0.60-1.10); GLUCOSE 171 MG/DL (70-104); POTASSIUM 4.2 MMOL/L (3.5-5.1); SODIUM 137 MMOL/L (135-145); TOTAL CARBON DIOXIDE 25.2 MMOL/L (24-32); TOTAL PROTEIN 6.7 G/DL (6.4-8.2); eGFR 59 ML/MIN
[2021-05-06 14:29] VITALS: BP 133/72
[2021-05-06] MEDS ORDERED: normal saline 1000ML IV soln IVB ONE (14:50)
== END 2021-05-06 16:53 | disposition home or self-care (01) ==
LOC: ER 12:06
DX: G89.18 Other acute postprocedural pain (principal); R53.1 Weakness; R07.89 Other chest pain; I48.91 Unspecified atrial fibrillation; E78.00 Pure hypercholesterolemia, unspecified; I10 Essential (primary) hypertension; E11.9 Type 2 diabetes mellitus without complications; Z87.442 Personal history of urinary calculi; Z85.9 Personal history of malignant neoplasm, unspecified; Z95.0 Presence of cardiac pacemaker; Z98.890 Other specified postprocedural states; Z79.899 Other long term (current) drug therapy; Z91.013 Allergy to seafood
CPT/HCPCS: 36415; 71045; 80053; 83880; 84484; 85025; 93005; 99285; J7030

== ENCOUNTER 2021-05-08 19:46 | Inpatient (IN) | payer OTHER, MEDICARE, BC ==
[~2021-05-08] VITALS: Ht 172.7 cm; Wt 72.8 kg
[2021-05-08 23:05] LABS: BASOPHILS % (AUTO) 0.2 % (0-1); EOSINOPHILS % (AUTO) 0.2 % (0-6); HEMATOCRIT 29.8 % (42.0-52.0); HEMOGLOBIN 9.9 g/dl (14.0-17.9); LYMPHOCYTES # (AUTO) 1.1 X10'3 (1.1-4.8); LYMPHOCYTES % (AUTO) 8.5 % (21-51); MEAN CORPUSCULAR HEMOGLOBIN 31.2 PG (27.0-31.0); MEAN CORPUSCULAR HGB CONC 33.3 g/dL (33.0-36.5); MEAN CORPUSCULAR VOLUME 93.6 FL (78-98); MEAN PLATELET VOLUME 7.6 FL (7.4-10.4); MONOCYTES # (AUTO) 1.3 X10'3 (0-0.9); MONOCYTES % (AUTO) 10.4 % (2-12); NEUTROPHILS # (AUTO) 10.1 X10'3 (1.8-7.7); NEUTROPHILS % (AUTO) 80.7 % (42-75); PLATELET COUNT 350 X10'3 (140-440); RED BLOOD COUNT 3.19 X10'6 (4.70-6.10); RED CELL DISTRIBUTION WIDTH 13.5 % (11.5-14.5); WHITE BLOOD COUNT 12.5 X10'3 (4.5-11.0)
[2021-05-08 23:20] LABS: ALANINE AMINOTRANSFERASE 159 U/L (12-78); ALBUMIN 2.7 G/DL (3.4-5.0); ALBUMIN/GLOBULIN RATIO 0.7 (1.1-1.5); ALKALINE PHOSPHATASE 256 IU/L (46-116); ANION GAP 10 (8-16); ASPARTATE AMINO TRANSFERASE 89 U/L (10-37); BILIRUBIN,TOTAL 0.7 MG/DL (0.1-1.0); BLOOD UREA NITROGEN 28 MG/DL (7-18); CALCIUM 9.5 MG/DL (8.5-10.1); CHLORIDE 99 MMOL/L (99-107); CREATININE 1.12 MG/DL (0.60-1.10); GLUCOSE 194 MG/DL (70-104); POTASSIUM 3.9 MMOL/L (3.5-5.1); SODIUM 134 MMOL/L (135-145); TOTAL PROTEIN 6.8 G/DL (6.4-8.2); eGFR 62 ML/MIN
[2021-05-09] MEDS ORDERED: mag hydrox/Alum hydrox/simeth 30ml oral suspension PO PRN (02:00)
[2021-05-09] MEDS ORDERED: magnesium hydroxide 30ml (MOM) UD suspension PO PRN (02:00)
[2021-05-09] MEDS ORDERED: HYDROcodone/acetaminophen 5mg/325mg tablet PO PRN (02:00)
[2021-05-09] MEDS ORDERED: ondansetron/PF 4mg/2ml inj IV PRN (02:00)
[2021-05-09] MEDS ORDERED: acetaminophen 325mg tablet PO PRN (02:00)
[2021-05-09] MEDS: normal saline 1000ml 1,000 ML IV SCH ×2 (02:31→18:40)
[2021-05-09] MEDS ORDERED: iohexol 300mg/ml 100ml inj. ONE (02:37)
[2021-05-09] MEDS: CefTRIAXone/D5W-Rocephin 1gm 50 ML IV SCH (04:23)
[2021-05-09] MEDS: vancomycin/NS 1 GM ADD-VANTAGE 250 ML IV SCH (05:16)
--- NOTE | 2021-05-09 10:32 | NUR ---
PATIENT REPORTS THAT HE IS HAVING INCONTINENCE OF BLOODY URINE. NURSE ASSESSED DRAINAGE TO FIND THAT THE LOWER PART OF HIS CHEST INCISION IS DRAINING PURULENT PINKISH FLUID, LARGE AMOUNT. PATIENT CLEANED UP AND BULKY GAUZE DRESSING APPLIED OVER INCISION. DR RASMUSSEN AND INTERVENTIONAL RADIOLOGY NOTIFIED OF THE FACT THAT THE INCISION IS DRAINING. WOUND CULTURE TO BE OBTAINED.
[2021-05-09 11:36] VITALS: BP 134/79
--- NOTE | 2021-05-09 11:38 | NUR ---
TO MARGARET MARKHAM.
[2021-05-09 11:48] VITALS: BP 137/73
--- NOTE | 2021-05-09 12:06 | NUR ---
Patient returned from IR, with shobha drain in place. Dressing is clean and dry. No drainage in bulb, Although patient has some blood in tubing. IR stated that they were able to drain 160 mL of output bring the abscess.
[2021-05-09] MEDS: docusate sod 100mg capsule PO SCH ×2 (12:33→19:58)
--- NOTE | 2021-05-09 14:17 | NUR ---
PATIENT AND DAUGHTER ARE WONDERING IF ROUTINE HOME MEDS WILL BE RESTARTED. PAGE SENT TO DR. RASMUSSEN. ER BED 9- R. POONAM IS WONDERING IF HE IS GOING TO BE RESTARTED ON HIS ROUTINE HOME MEDICATIONS TODAY. THANK YOU, CHAR, EXT. [phone]
--- NOTE | 2021-05-09 16:40 | NUR ---
ATTEMPTING TO CALL REPORT TO SURGICAL UNIT. NURSE IS BUSY AND WILL CALL BACK WHEN ABLE.
--- NOTE | 2021-05-09 17:21 | NUR ---
I have received report from EDWIN Huang and had the opportunity to ask questions and assume patient care.
--- NOTE | 2021-05-09 17:32 | NUR ---
PAGE TO DR. RASMUSSEN RE: PATIENT'S CONTINUED TACHYCARDIA SINCE THIS MORNING. PAGER ID: [phone] MESSAGE: ER BED 9 LEVIN: HAS BEEN HAVING A-FIB WITH HEART RATE BETWEEN 118-130 SINCE THIS MORNING. HE IS DUE FOR A DOSE OF LOPRESSOR AT 2000 AND IMDUR IN THE MORNING. ADMITTED TO ROOM 355B. DO YOU THINK HE NEEDS AN ADDITIONAL MED NOW? CHAR [phone]
--- NOTE | 2021-05-09 17:45 | NUR ---
Pt arrived to surgical floor, daughter at bedside
[2021-05-09 17:56] VITALS: BP 102/73
--- NOTE | 2021-05-09 17:59 | NUR ---
Dr Godwin notified of pt's HR in the 120's-130's for most of day. Orders received to transfer to PCU. family services specialist and NS[employer] dimension stone quarry supervisor notified.
--- NOTE | 2021-05-09 18:48 | NUR ---
Problems reprioritized. Patient report given, questions answered & plan of care reviewed with EDWIN Kidd.
[2021-05-09] MEDS: lactobacillus rhamnosus 10,000 MMU CELLS/CAPSULE PO SCH (19:57)
[2021-05-09] MEDS: atorvastatin 20mg tablet PO SCH (19:57)
[2021-05-09] MEDS: apixaban 5mg tablet PO SCH (19:57)
[2021-05-09] MEDS: metoprolol tartrate 12.5mg (1/2 tablet) PO SCH (19:58)
[2021-05-09 22:00] VITALS: BP 136/86
--- NOTE | 2021-05-09 23:03 | NUR ---
called Dr Ruiz regarding tele order for pt, order confirmed, pt now has tele order per MD orders
[2021-05-10 02:00] VITALS: BP 128/83
--- NOTE | 2021-05-10 02:52 | NUR ---
Pt Hr in the 150's-110, Called Dr Ruiz concerning HR, Dr Ruiz ordered Pt morning med metoprolol 12.5mg now.
[2021-05-10] MEDS: metoprolol tartrate 12.5mg (1/2 tablet) PO SCH (03:15)
[2021-05-10] MEDS: CefTRIAXone/D5W-Rocephin 1gm 50 ML IV SCH (05:25)
[2021-05-10 06:00] VITALS: BP 128/89
[2021-05-10] MEDS: vancomycin/NS 1 GM ADD-VANTAGE 250 ML IV SCH (06:25)
--- NOTE | 2021-05-10 06:44 | NUR ---
Problems reprioritized. Patient report given, questions answered & plan of care reviewed with Fátima.
[2021-05-10 06:54] LABS: BASOPHILS # (AUTO) 0.1 X10'3 (0-0.2); BASOPHILS % (AUTO) 0.7 % (0-1); EOSINOPHILS # (AUTO) 0.1 X10'3 (0-0.9); EOSINOPHILS % (AUTO) 1.5 % (0-6); HEMATOCRIT 28.7 % (42.0-52.0); HEMOGLOBIN 9.9 g/dl (14.0-17.9); LYMPHOCYTES # (AUTO) 1.5 X10'3 (1.1-4.8); LYMPHOCYTES % (AUTO) 17.7 % (21-51); MEAN CORPUSCULAR HEMOGLOBIN 31.7 PG (27.0-31.0); MEAN CORPUSCULAR HGB CONC 34.4 g/dL (33.0-36.5); MEAN CORPUSCULAR VOLUME 92.1 FL (78-98); MEAN PLATELET VOLUME 8.2 FL (7.4-10.4); MONOCYTES # (AUTO) 0.9 X10'3 (0-0.9); MONOCYTES % (AUTO) 10.3 % (2-12); NEUTROPHILS # (AUTO) 5.8 X10'3 (1.8-7.7); NEUTROPHILS % (AUTO) 69.8 % (42-75); PLATELET COUNT 356 X10'3 (140-440); RED BLOOD COUNT 3.12 X10'6 (4.70-6.10); RED CELL DISTRIBUTION WIDTH 13.6 % (11.5-14.5); WHITE BLOOD COUNT 8.3 X10'3 (4.5-11.0)
[2021-05-10 07:34] LABS: ALANINE AMINOTRANSFERASE 127 U/L (12-78); ALBUMIN 2.3 G/DL (3.4-5.0); ALBUMIN/GLOBULIN RATIO 0.6 (1.1-1.5); ALKALINE PHOSPHATASE 270 IU/L (46-116); ANION GAP 10 (8-16); ASPARTATE AMINO TRANSFERASE 71 U/L (10-37); BILIRUBIN,TOTAL 0.6 MG/DL (0.1-1.0); BLOOD UREA NITROGEN 19 MG/DL (7-18); BUN/CREATININE RATIO 21.3 (5.4-32.0); CHLORIDE 102 MMOL/L (99-107); CREATININE 0.89 MG/DL (0.60-1.10); GLUCOSE 137 MG/DL (70-104); POTASSIUM 3.9 MMOL/L (3.5-5.1); SODIUM 137 MMOL/L (135-145); TOTAL CARBON DIOXIDE 24.7 MMOL/L (24-32); TOTAL PROTEIN 6.1 G/DL (6.4-8.2); eGFR 80 ML/MIN
[2021-05-10] MEDS: docusate sod 100mg capsule PO SCH ×2 (08:00→21:28)
[2021-05-10] MEDS: tamsulosin 0.4mg capsule PO SCH (08:00)
[2021-05-10] MEDS: isosorbide mononitrate 30mg tab.SR.24H PO SCH (08:00)
[2021-05-10] MEDS: apixaban 5mg tablet PO SCH ×2 (08:00→21:30)
[2021-05-10] MEDS: lactobacillus rhamnosus 10,000 MMU CELLS/CAPSULE PO SCH ×2 (08:00→21:30)
[2021-05-10 11:00] VITALS: BP 124/86
[2021-05-10] MEDS: normal saline 1000ml 1,000 ML IV SCH ×2 (12:56→21:32)
[2021-05-10 15:00] VITALS: BP 126/76
--- NOTE | 2021-05-10 16:04 | NUR ---
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 Patient's current scaled wt is stable with wt hx in EMR and appropriate for age. Pt on a clear liquid diet documented with 100% PO intake first meal and was eating well at previous admit (03/17-03/19) with average 75-100% PO intake on heart healthy CHO controlled diet, not requiring any texture modification. Pt with no documented significant decrease in muscle strength or edema. Pt currently lacks a minimum of two criteria for malnutrition. Noted patient's most recent A1c (03/18/21) is 6.8%, well controlled for age. Recommend diet advancement to regular as medically indicated in view of geriatric age. Will continue to follow. Addendum: 05/10/21 at [address] Amended: Links added.
--- NOTE | 2021-05-10 16:17 | NUR ---
Paged Dr Cuenca PAGER ID: [phone] MESSAGE: Room 3022. Rodrigue Thomas. May I advance clear liquid diet to full? reg? PT & Eval? Thanks, Nilda [phone]
--- NOTE | 2021-05-10 17:00 | NUR ---
Pt refused 1700 BG check
--- NOTE | 2021-05-10 18:27 | NUR ---
Problems reprioritized. Patient report given, questions answered & plan of care reviewed with EDWIN Gan.
[2021-05-10 19:00] VITALS: BP 125/80
[2021-05-10] MEDS: metoprolol tartrate 25mg tablet PO SCH (21:29)
[2021-05-10] MEDS: atorvastatin 20mg tablet PO SCH (21:30)
[2021-05-10 23:00] VITALS: BP 134/95
[2021-05-11] MEDS: CefTRIAXone/D5W-Rocephin 1gm 50 ML IV SCH (04:00)
[2021-05-11] MEDS: vancomycin/NS 1 GM ADD-VANTAGE 250 ML IV SCH (05:00)
[2021-05-11 06:00] VITALS: BP 165/99
[2021-05-11 08:24] LABS: BASOPHILS # (AUTO) 0.1 X10'3 (0-0.2); BASOPHILS % (AUTO) 1.1 % (0-1); EOSINOPHILS # (AUTO) 0.3 X10'3 (0-0.9); EOSINOPHILS % (AUTO) 3.5 % (0-6); HEMOGLOBIN 10.7 g/dl (14.0-17.9); LYMPHOCYTES # (AUTO) 1.7 X10'3 (1.1-4.8); LYMPHOCYTES % (AUTO) 20.3 % (21-51); MEAN CORPUSCULAR HEMOGLOBIN 31.3 PG (27.0-31.0); MEAN CORPUSCULAR HGB CONC 33.3 g/dL (33.0-36.5); MEAN CORPUSCULAR VOLUME 93.9 FL (78-98); MEAN PLATELET VOLUME 7.8 FL (7.4-10.4); MONOCYTES # (AUTO) 0.9 X10'3 (0-0.9); MONOCYTES % (AUTO) 11.1 % (2-12); NEUTROPHILS # (AUTO) 5.3 X10'3 (1.8-7.7); PLATELET COUNT 442 X10'3 (140-440); RED BLOOD COUNT 3.41 X10'6 (4.70-6.10); RED CELL DISTRIBUTION WIDTH 13.7 % (11.5-14.5); WHITE BLOOD COUNT 8.2 X10'3 (4.5-11.0)
[2021-05-11 08:44] LABS: ALANINE AMINOTRANSFERASE 223 U/L (12-78); ALBUMIN 2.5 G/DL (3.4-5.0); ALBUMIN/GLOBULIN RATIO 0.7 (1.1-1.5); ALKALINE PHOSPHATASE 245 IU/L (46-116); ANION GAP 14 (8-16); ASPARTATE AMINO TRANSFERASE 165 U/L (10-37); BILIRUBIN,TOTAL 0.4 MG/DL (0.1-1.0); BLOOD UREA NITROGEN 19 MG/DL (7-18); BUN/CREATININE RATIO 19.8 (5.4-32.0); CHLORIDE 106 MMOL/L (99-107); CREATININE 0.96 MG/DL (0.60-1.10); GLUCOSE 151 MG/DL (70-104); POTASSIUM 3.7 MMOL/L (3.5-5.1); SODIUM 144 MMOL/L (135-145); TOTAL CARBON DIOXIDE 24.1 MMOL/L (24-32); TOTAL PROTEIN 6.2 G/DL (6.4-8.2); eGFR 74 ML/MIN
[2021-05-11] MEDS: docusate sod 100mg capsule PO SCH ×2 (10:16→20:00)
[2021-05-11] MEDS: apixaban 5mg tablet PO SCH ×2 (10:16→20:00)
[2021-05-11] MEDS: isosorbide mononitrate 30mg tab.SR.24H PO SCH (10:16)
[2021-05-11] MEDS: tamsulosin 0.4mg capsule PO SCH (10:16)
[2021-05-11] MEDS: lactobacillus rhamnosus 10,000 MMU CELLS/CAPSULE PO SCH ×2 (10:16→21:59)
[2021-05-11] MEDS: metoprolol tartrate 25mg tablet PO SCH ×2 (10:17→22:00)
[2021-05-11 11:00] VITALS: BP 112/77
--- NOTE | 2021-05-11 12:38 | NUR ---
PAGER ID: [phone] MESSAGE: [phone], Rodrigue Thomas, stat EKG reads atrial fibrillation, HR of 128, should I continue cardizen drip? thank you, Sima PINEDA [phone]
[2021-05-11] MEDS: diltiazem-NS 100mg/100ml 100 ML IV SCH (13:55)
[2021-05-11] MEDS ORDERED: temazepam 15mg capsule PO PRN (14:30)
[2021-05-11 19:00] VITALS: BP 90/58
[2021-05-11 19:09] VITALS: BP 98/69
[2021-05-11 23:00] VITALS: BP 115/89
[2021-05-12 03:00] VITALS: BP 103/64
[2021-05-12] MEDS ORDERED: VANCOMYCIN LEVEL IV ONE (04:30)
[2021-05-12] MEDS: CefTRIAXone/D5W-Rocephin 1gm 50 ML IV SCH (04:58)
[2021-05-12] MEDS: vancomycin/NS 1 GM ADD-VANTAGE 250 ML IV SCH (05:00)
[2021-05-12 06:00] VITALS: BP 115/64
[2021-05-12 06:41] LABS: BASOPHILS % (AUTO) 0.4 % (0-1); EOSINOPHILS # (AUTO) 0.5 X10'3 (0-0.9); HEMATOCRIT 28.6 % (42.0-52.0); HEMOGLOBIN 9.7 g/dl (14.0-17.9); LYMPHOCYTES # (AUTO) 1.6 X10'3 (1.1-4.8); LYMPHOCYTES % (AUTO) 19.6 % (21-51); MEAN CORPUSCULAR HEMOGLOBIN 31.6 PG (27.0-31.0); MEAN CORPUSCULAR VOLUME 93.2 FL (78-98); MEAN PLATELET VOLUME 7.2 FL (7.4-10.4); NEUTROPHILS # (AUTO) 4.9 X10'3 (1.8-7.7); PLATELET COUNT 403 X10'3 (140-440); RED BLOOD COUNT 3.07 X10'6 (4.70-6.10); RED CELL DISTRIBUTION WIDTH 13.5 % (11.5-14.5)
[2021-05-12] MEDS: diltiazem-NS 100mg/100ml 100 ML IV SCH (07:00)
[2021-05-12 07:52] LABS: ALANINE AMINOTRANSFERASE 185 U/L (12-78); ALBUMIN 2.4 G/DL (3.4-5.0); ALBUMIN/GLOBULIN RATIO 0.7 (1.1-1.5); ALKALINE PHOSPHATASE 204 IU/L (46-116); ANION GAP 12 (8-16); ASPARTATE AMINO TRANSFERASE 87 U/L (10-37); BILIRUBIN,TOTAL 0.4 MG/DL (0.1-1.0); BLOOD UREA NITROGEN 17 MG/DL (7-18); BUN/CREATININE RATIO 18.7 (5.4-32.0); CALCIUM 8.8 MG/DL (8.5-10.1); CHLORIDE 106 MMOL/L (99-107); CREATININE 0.91 MG/DL (0.60-1.10); GLUCOSE 142 MG/DL (70-104); POTASSIUM 3.2 MMOL/L (3.5-5.1); SODIUM 143 MMOL/L (135-145); TOTAL CARBON DIOXIDE 24.9 MMOL/L (24-32); TOTAL PROTEIN 5.7 G/DL (6.4-8.2); eGFR 78 ML/MIN
[2021-05-12] MEDS ORDERED: potassium Cl 20 mEq SR tablet PO PRN ×2 (08:45)
[2021-05-12] MEDS: lactobacillus rhamnosus 10,000 MMU CELLS/CAPSULE PO SCH (08:47)
[2021-05-12] MEDS: apixaban 5mg tablet PO SCH (08:47)
[2021-05-12] MEDS: isosorbide mononitrate 30mg tab.SR.24H PO SCH (08:47)
[2021-05-12] MEDS: tamsulosin 0.4mg capsule PO SCH (08:47)
[2021-05-12] MEDS: docusate sod 100mg capsule PO SCH (08:47)
[2021-05-12] MEDS: metoprolol tartrate 25mg tablet PO SCH (08:47)
[2021-05-12 11:00] VITALS: BP 127/60
[2021-05-12 11:08] LABS: HEPATITIS C ANTIBODY <0.1 s/co ratio (0.0-0.9)
[2021-05-12] MEDS ORDERED: metroNIDAZOLE 500mg tablet PO SCH (12:30)
[2021-05-12] MEDS: normal saline 1000ml 1,000 ML IV SCH (13:55)
[2021-05-12] MEDS ORDERED: METR500T PO (14:37)
[2021-05-12] MEDS ORDERED: LINE600T14 PO (14:37)
[2021-05-12] MEDS ORDERED: LOP25T PO (14:37)
--- NOTE | 2021-05-12 14:55 | NUR ---
PAGER ID: [phone] MESSAGE: RE: [facility] [address]A William. I saw the d/c order. Do you want him to go home with the AYAZ? Or do we d/c it?
[2021-05-12 15:00] VITALS: BP 111/71
--- NOTE | 2021-05-12 15:18 | NUR ---
Called Dr Miller@ [phone] regarding AYAZ drain orders upon d/c. Ok to remove AYAZ drain.
--- NOTE | 2021-05-12 17:05 | NUR ---
Pt discharged home. AYAZ and IV removed. Pt verbalized understanding of instructions and follow up care. Pt wheeled to front lobby by wheelchair and his son gave him a ride out of the parking lot.
[2021-05-12] MEDS ORDERED: linezolid 600mg tablet PO SCH (20:00)
[2021-05-12] MEDS ORDERED: K and/or MAG REPLACEMENT MC SCH (20:00)
[2021-05-12] MEDS ORDERED: vancomycin/NS 1 GM ADD-VANTAGE 250 ML IV SCH (23:00)
[2021-05-13] MEDS ORDERED: VANCOMYCIN LEVEL IV ONE (22:30)
== END 2021-05-12 16:55 | disposition home health service (06) | DRG 863 ==
LOC: ER 19:46 → ED HOLD 05-09 02:00 → SUR 3N 05-09 17:45 → PCU 3S 05-09 21:00
PROVIDERS: ADMIT Internal Medicine; ATTEND Internal Medicine
PROC: 0W9830Z Drainage of Chest Wall with Drainage Device, Percutaneous Approach (ICD-10-PCS; principal; 2021-05-09)
PROC: BW251ZZ Computerized Tomography (CT Scan) of Chest, Abdomen and Pelvis using Low Osmolar Contrast (ICD-10-PCS; 2021-05-09)
DX: T81.49XA Infection following a procedure, other surgical site, initial encounter (principal); L02.213 Cutaneous abscess of chest wall; R64 Cachexia; I48.91 Unspecified atrial fibrillation; E78.00 Pure hypercholesterolemia, unspecified; I71.4 Abdominal aortic aneurysm, without rupture; R79.89 Other specified abnormal findings of blood chemistry; N40.0 Benign prostatic hyperplasia without lower urinary tract symptoms; I25.10 Atherosclerotic heart disease of native coronary artery without angina pectoris; Z20.822 Contact with and (suspected) exposure to COVID-19; I12.9 Hypertensive chronic kidney disease with stage 1 through stage 4 chronic kidney disease, or unspecified chronic kidney disease; D64.9 Anemia, unspecified; T46.6X5A Adverse effect of antihyperlipidemic and antiarteriosclerotic drugs, initial encounter; E11.22 Type 2 diabetes mellitus with diabetic chronic kidney disease; N18.30 Chronic kidney disease, stage 3 unspecified; E78.5 Hyperlipidemia, unspecified; Y83.8 Other surgical procedures as the cause of abnormal reaction of the patient, or of later complication, without mention of misadventure at the time of the procedure; K59.00 Constipation, unspecified; Z85.89 Personal history of malignant neoplasm of other organs and systems; Z87.442 Personal history of urinary calculi; Z87.891 Personal history of nicotine dependence; Z68.24 Body mass index [BMI] 24.0-24.9, adult; Z91.013 Allergy to seafood; Z79.899 Other long term (current) drug therapy; Y92.89 Other specified places as the place of occurrence of the external cause
CPT/HCPCS: 36415; 71260; 74177; 75989; 76700; 80053; 80202; 82948; 84145; 85025; 86705; 86803; 87070; 87075; 87076; 87077; 87081; 87185; 87186; 87635; 93005; 97116; 97161; 97530; 99285; G0378; J0696; J3370; J3490; J7030; Q9967

== ENCOUNTER 2021-05-14 17:13 | Emergency (ER) | payer OTHER, MEDICARE, BC ==
[~2021-05-14] VITALS: Ht 172.7 cm; Wt 68.0 kg
[~2021-05-14 17:13] MED LIST changes: +LINE600T14 PO; +LOP25T PO; -METO25TA6 PO; +METR500T PO
[2021-05-14 18:21] VITALS: BP 121/80
== END 2021-05-14 18:31 | disposition home or self-care (01) ==
LOC: ER 17:13
DX: I95.9 Hypotension, unspecified (principal); R42 Dizziness and giddiness; I48.91 Unspecified atrial fibrillation; I10 Essential (primary) hypertension; E11.9 Type 2 diabetes mellitus without complications; Z87.442 Personal history of urinary calculi; Z95.0 Presence of cardiac pacemaker; Z98.890 Other specified postprocedural states; E78.00 Pure hypercholesterolemia, unspecified; Z79.899 Other long term (current) drug therapy
CPT/HCPCS: 99283